=== PATIENT | male | born 1970 | race Caucasian/White ===

== ENCOUNTER 2023-09-12 17:27 | Emergency (ER) | payer BC, SELFPAY ==
[2023-09-12 17:28] VITALS: BP 135/90; PULSE 71; RESP 16; TEMP 36.8; O2SAT 95; BMI 33.5
--- NOTE | 2023-09-12 20:16 | EDS_ITS ---
HPI History of Present Illness Chief Complaint: Back Detail of Chief Complaint: Paresthesias to right upper back Informant: patient Narrative Narrative: Patient describes paresthesias to right upper back that has had for about a month. Patient states he first noticed it when his was massaging his back and that he did not have much sensation back there. He denies injury. He denies any pain. Patient feels like the area has spread somewhat in the last 3 days. Patient denies any back injury. He denies any neck pain. He does describe paresthesias in both arms sometimes with certain movements especially if he is driving a certain way. Patient does drink alcohol. Admits occasional marijuana usage. [facility] Medical History (Updated 09/12/23 @ 21:[address] Maricarmen Alford DO) Gout Hypercholesterolemia Surgical History History of Beth fundoplication Hx of tonsillectomy Social History Smoking Status: Former smoker ROS ROS ED Review of Systems ROS Unobtainable: other Constitutional Constitutional ED: Reports lethargy; Denies chills, fever(s), sweats or weight loss Eyes Eyes: Denies blurry vision, change in vision or diplopia ENT ENT ED: Denies rhinorrhea or sore throat Cardiovascular Cardiovascular: Denies chest pain, orthopnea or racing heartbeat Respiratory/Chest Respiratory/Chest: Denies cough, dyspnea, dyspnea on exertion, orthopnea or sputum Gastrointestinal Gastrointestinal: Denies abdominal pain, diarrhea, nausea or vomiting Genitourinary Genitourinary ED: Denies dysuria, hematuria or urinary frequency Musculoskeletal Musculoskeletal: Denies arthralgias, back pain, myalgias or neck pain Integumentary Denies abscess, Abrasions or rash Neurologic Neurologic: Reports paresthesias; Denies headache(s) or weakness Psychiatric Psychiatric: Denies anxiety, depression or suicidal thoughts Endocrine Endocrinology: Denies polydipsia, polyphagia or polyuria Hematologic/Lymphatic Hematologic/Lymphatic: Denies easy bleeding, easy bruising or lymphadenopathy Allergic/Immunologic Allergic/Immunologic ED: Denies mouth swelling, tongue swelling or urticaria EXAM Physical Exam Const Vital Signs: 09/12/23 17:28 Temperature 98.3 F Temperature Source Temporal Pulse Rate 71 Respiratory Rate 16 Blood Pressure 135/90 H Blood Pressure Mean 105 Pulse Ox 95 Positive well nourished and well developed General Appearance ED: well developed and NAD HEENT Reports TM's clear and moist mucous membranes normocephalic and atraumatic; Negative for trauma or tenderness Tympanic Membrane ED: Yes TM's clear Eyes PERRL and EOMs intact bilaterally General Eye ED: Negative for pale conjunctiva or scleral icterus Neck no lymphadenopathy, supple and no JVD General: Negative for tenderness Chest Wall inspection of chest normal and palpation of chest normal Chest: Negative for tenderness Resp normal respiratory effort and clear to auscultation bilaterally Effort and Inspection: Negative for respiratory distress or pain with movement Auscultation: Negative for rhonchi, wheezes or diminished lung sounds Cardio regular rate, regular rhythm, S1 normal heart sound, S2 normal heart sound and no murmurs Peripheral Pulses: pulses 2+ throughout GI normal to inspection, nondistended, normoactive bowel sounds, soft to palpation, non-tender, non-distended and no masses Back/Spine no CVA tenderness and no thoracic nor lumbar tenderness Back/Spine Narrative: Evaluation of his back does reveal an area over the right upper thoracic paraspinal musculature of decree sensation. There is no pain on palpation. No masses noted. There is no erythema or warmth noted to the skin. Extremity normal to inspection General Extremety ED: Negative for edema General Extremity: Negative for edema Neuro oriented x3, CN's II-XII intact bilaterally, no sensory deficits noted and gait normal Sensorium / Orientation: awake, alert, oriented to person, oriented to place and oriented to time Motor Exam: strength 5/5 throughout and strength abnormal Psych mental status grossly normal Skin no rashes or lesions noted and no wounds MDM MDM MDM Narrative Medical decision making narrative: Patient presents with decree sensation to the right upper back that is been there for over a month. He has no pain. Patient denies any injury. He does do a lot of repetitive motions at work and does work overhead at times. I did obtain CBC and basic metabolic profile which were unremarkable. I did obtain x- rays of the thoracic spine and I do not appreciate any evidence of lytic lesions or other abnormalities. At this point etiology of his paresthesias unclear although I suspect potentially a peripheral nerve compression as the cause of symptoms. Recommended he follow-up with his primary care physician if symptoms persist or worsen may require further imaging such as possibly MRI of the thoracic spine. Patient visiting from [place] and is here working. Patient states that he has already made a follow-up appointment with his primary care physician for follow-up. Lab Data Attestation: I reviewed the patient's lab results. Radiography Diagnostic Testin view x-rays of the thoracic spine obtained interpreted by myself as no evidence of lytic lesions or fractures or other abnormalities. Official report from radiology pending. Discharge Plan Triage Chief Complaint: Back ED Provider: Maricarmen Alford Dx/Rx/DC Orders Clinical Impression: Paresthesias Instructions: ED Paraesthesias Primary Care Provider: PARKER ARTEAGA Referrals: PARKER ARTEAGA [Other] Activity Restrictions/Additional Instructions: Follow-up with your primary care physician within next 3 to 5 days. Print Language: Palestinian Disposition Disposition: Home, Self Care
[2023-09-12 20:27] VITALS: PULSE 72; RESP 18; O2SAT 97
--- NOTE | 2023-09-12 20:30 | RAD_ITS ---
INDICATION: paresthesia upper back x one month EXAMINATION/TECHNIQUE: X-RAY - XR Spine Thoracic 3Views COMPARISON: FINDINGS: VERTEBRAE: Preserved vertebral body height. No fracture. No spondylolisthesis. Preservation of the normal thoracic kyphosis. No significant facet arthropathy. DISCS: Disc spaces are maintained. INCLUDED CHEST/ABDOMEN: Surgical clips in the left upper quadrant. RAD/Thoracic Spine 2 Views IMPRESSION: No evidence of thoracic spinal fracture or spondylolisthesis. Electronically Signed: Patrice Neff DO at 22:49 EDT ,
[2023-09-12 20:34] LABS: Absolute Lymphocyte Count 2.51 X10^3/uL (0.83-4.51); Absolute Neutrophil Count 3.4 X10^3/uL (2.0-7.7); Basophil# 0.06 X10^3/uL; Basophil% 0.8 % (0-1); Eosinophil# 0.51 X10^3/uL; Eosinophils% 7.1 % (0-5); Hematocrit 42.1 % (40-54); Hemoglobin 14.6 g/dL (13.0-16.5); Lymphocyte # 2.51 X10^3/ul (0.83-4.51); Lymphocyte % 35.2 % (19-41); Mean Corp Hgb Conc 34.7 g/dL (32-36); Mean Corpuscular Volume 86.4 fL (80-94); Mean Platelet Vol. 9.2 fl (6.2-12.0); Monocyte# 0.61 X10^3/uL; Monocyte% 8.5 % (0-10); NRBC Flagged by Analyzer 0 % (0-5); Neutrophil # 3.44 X10^3/uL (2.7-7.7); Neutrophil % 48.3 % (47-70); Platelet Count 199 K/mm3 (150-450); RBC Distribution Width CV 12.6 % (11.6-14.6); RBC Distribution Width SD 39.6 fl (35.1-43.9); Red Blood Count 4.87 M/mm3 (4.6-6.2); White Blood Count 7.1 K/mm3 (4.4-11.0)
[2023-09-12 20:53] LABS: Anion Gap 6 (5-15); BUN 19 mg/dL (7-18); BUN/Creat Ratio 19.8 RATIO (10-20); Chloride 104 mmol/L (98-107); Creatinine, Serum 0.96 mg/dL (0.70-1.30); EST Glomerular Filtration Rate 88 mL/min (>60); Est Glom Filt Rate - Afr Amer 106 mL/min (>60); Estimated Creatinine Clearance 107.67 ml/min; Glucose 89 mg/dL (74-106); Potassium 4.3 mmol/L (3.5-5.1); Sodium Level 136 mmol/L (136-145)
[2023-09-12 21:55] VITALS: BP 135/75; PULSE 70; RESP 16; TEMP 36.6; O2SAT 99
== END 2023-09-12 21:55 | disposition home or self-care (01) ==
PROVIDERS: Emergency Provider Emergency Medicine; Visit Provider Emergency Medicine
DX: R20.2 Paresthesia of skin (principal); E78.00 Pure hypercholesterolemia, unspecified; Z87.891 Personal history of nicotine dependence
CPT/HCPCS: 72070; 80048; 85025; 99283; A4216